=== PATIENT | female | born 1970 | race African-American/Black ===

== ENCOUNTER 2017-02-11 15:35 | Emergency (ER) | payer MEDICAID, OTHER ==
[2017-02-11 15:44] VITALS: BP 177/87
[2017-02-11] MEDS ORDERED: Sodium Chloride 0.9% 10 ML Syringe FLUSH PRN (16:19)
[2017-02-11] MEDS ORDERED: Haloperidol Lactate 5 MG/ML SDV IVPUSH ONE (16:19)
[2017-02-11] MEDS ORDERED: diphenhydrAMINE 50 MG/ML SDV IVPUSH ONE (16:19)
[2017-02-11] MEDS ORDERED: Sodium Chloride 0.9% 1,000 ML IV ONE (16:19)
[2017-02-11] MEDS ORDERED: Metoclopramide 10 MG/2 ML SDV IVPUSH ONE (16:20)
--- NOTE | 2017-02-11 16:24 | EDM.PDOC ---
ED HPI GENERAL MEDICAL PROBLEM - General Chief Complaint: Headache Stated Complaint: HEADACHE SINCE TUE Time Seen by Provider: 02/11/17 16:03 Source of Information: Reports: Patient, Old Records (recent ER, clinic labs and clinic visits) History Limitations: Reports: No Limitations - History of Present Illness INITIAL COMMENTS - FREE TEXT/NARRATIVE: 46-year-old female presents for evaluation and treatment of a headache. Patient reports that the headache developed on Tuesday. She was seen at the [facility] in [place]. She states she was given 2 Tylenol and a lisinopril. She was then instructed to go home and rest. She states that the headache did not resolve. Patient states that she saw her primary care provider. Labs were done. She states that she was given a shot Toradol which did not help her headache. She has a history of hypertension and has been off her blood pressure medications for some time. She has been instructed to go back on the lisinopril. She is currently complaining of a headache, blurry vision, photophobia and nausea. She denies any neck pain, seizures, double vision, chest pain, shortness of breath, numbness and tingling. Patient reports that the headache is located on the top of her head and rated as a 10 out of 10. She does not get frequent headaches. Patient has also had diarrhea. She states that anything she eats she'll have 2 episodes of diarrhea immediately afterwards. No vomiting. No abdominal pain. No melena or hematochezia. Patient denies any surgeries to her abdomen. Patient reports that she ate [employer] on Tuesday. She states she has not eaten [employer] in approximately 20 years. This was the only thing out of the normal that she can think of that may attribute triggered the migraine. She denies any recent travel. She denies any ill contacts. Headache Pain Score (Numeric/FACES): 10 - Related Data Allergies Allergy/AdvReac Type Severity Reaction Status Date / Time No Known Drug Allergies Allergy Other Verified 05/31/16 08:53 Home Meds: Home Meds Lisinopril 20 mg PO DAILY 05/28/16 [History] Past Medical History Cardiovascular History: Reports: Hypertension Social & Family History - Tobacco Use Smoking Status *Q: Never Smoker - Caffeine Use Caffeine Use: Reports: Soda, Tea - Recreational Drug Use Recreational Drug Use: No ED ROS GENERAL - Review of Systems Review Of Systems: See Below Constitutional: Denies: Fever HEENT: Reports: Vision Change (reports blurry vision; no double vision), Other ( reports photophobia) GI/Abdominal: Reports: Diarrhea, Nausea, Vomiting. Denies: Abdominal Pain, Hematochezia, Melena Musculoskeletal: Denies: Neck Pain, Back Pain - Physical Exam Exam: See Below Exam Limited By: No Limitations General Appearance: Alert, WD/WN, No Apparent Distress Eye Exam: Bilateral Eye: PERRL Ears: Normal External Exam, Normal Canal, Hearing Grossly Normal, Normal TMs Nose: Normal Inspection Throat/Mouth: Normal Inspection, Normal Lips, Normal Voice, No Airway Compromise Head Exam: Atraumatic, Normocephalic Neck: Normal Inspection, Supple, Non-Tender, Full Range of Motion Respiratory/Chest: No Respiratory Distress, Lungs Clear, Normal Breath Sounds Cardiovascular: Normal Peripheral Pulses, Regular Rate, Rhythm, No Murmur Neuro Exam (Abbreviated): Alert, Oriented, Normal Cognition, Normal Gait Psychiatric: Normal Affect, Normal Mood Skin Exam: Warm, Dry, Normal Color Course - Vital Signs Last Recorded V/S: Last Vital Signs Temp 36.9 C 02/11/17 15:43 Pulse 67 02/11/17 15:43 Resp 20 02/11/17 15:43 BP 177/87 H 02/11/17 15:43 Pulse Ox 99 02/11/17 15:43 - Orders/Labs/Meds Orders: Active Orders 24 hr Category Date Time Status Peripheral IV Care [RC] . DIRECTED Care 02/11/17 16:19 Active Sodium Chloride 0.9% [Saline Flush] Med 02/11/17 16:19 Active 10 ml FLUSH ASDIRECTED PRN Peripheral IV Insertion Adult [OM.PC] Routine Oth 02/11/17 16:15 Ordered Medication Orders Sodium Chloride (Saline Flush) 10 ml FLUSH ASDIRECTED PRN PRN Reason: Keep Vein Open Last Admin: 02/11/17 16:50 Dose: 10 ml Meds: Medications Generic Name Dose Route Start Last Admin Trade Name Freq PRN Reason Stop Dose Admin Sodium Chloride 10 ml 02/11/17 16:19 02/11/17 16:50 Saline Flush FLUSH 10 ml ASDIRECTED PRN Administration Keep Vein Open Discontinued Medications Generic Name Dose Route Start Last Admin Trade Name Freq PRN Reason Stop Dose Admin Diphenhydramine HCl 50 mg 02/11/17 16:19 02/11/17 16:55 Benadryl IVPUSH 02/11/17 16:20 50 mg ONETIME ONE Administration Haloperidol Lactate 5 mg 02/11/17 16:19 02/11/17 16:59 Haldol IVPUSH 02/11/17 16:20 5 mg ONETIME ONE Administration Sodium Chloride 1,000 mls @ 999 mls/hr 02/11/17 16:19 02/11/17 16:52 Normal Saline IV 02/11/17 17:19 999 mls/hr ONETIME ONE Administration Metoclopramide HCl 5 mg 02/11/17 16:20 02/11/17 16:53 Reglan IVPUSH 02/11/17 16:21 5 mg ONETIME ONE Administration - Radiology Interpretation Free Text/Narrative:: CT of the head without contrast impression per Dr. Cason: 1. No acute abnormality identified on noncontrast head CT study. CT Results Date: 02/11/17 - Re-Assessments/Exams Free Text/Narrative Re-Assessment/Exam: 02/11/17 17:54 Patient is currently resting comfortably. She reports that her headache is going away. I reviewed the CT with her. We will allow her to rest and if she feels better she may go home at any point. 02/11/17 18:00 The patient is now alert and awake. She states that her headache has resolved. She feels comfortable going home. I advised her to return to the ER if her symptoms change or worsen. She is to continue with her current plan of care and take the prescription provided by her primary care provider as planned. Discharge instructions as documented. Departure - Departure Time of Disposition: 18:00 Disposition: Home, Self-Care 01 Condition: Good Clinical Impression: Migraine - Discharge Information Referrals: Odilia Stern PA-C [Primary Care Provider] - Forms: ED Department Discharge Additional Instructions: I recommend taking your blood pressure medication daily as prescribed. Go home and rest in a dark quiet room. Follow-up with your primary care provider for further management of your migraine headaches as needed. May take your medication prescribed by your primary care provider if needed for additional headache relief. Make sure you are drinking plenty of fluids. Please return to the ER if your symptoms change or worsen. - My Orders Last 24 Hours: My Active Orders 02/11/17 16:15 Peripheral IV Insertion Adult [OM.PC] Routine 02/11/17 16:19 Peripheral IV Care [RC] . DIRECTED Sodium Chloride 0.9% [Saline Flush] 10 ml FLUSH ASDIRECTED PRN - Assessment/Plan Last 24 Hours: My Active Orders 02/11/17 16:15 Peripheral IV Insertion Adult [OM.PC] Routine 02/11/17 16:19 Peripheral IV Care [RC] . DIRECTED Sodium Chloride 0.9% [Saline Flush] 10 ml FLUSH ASDIRECTED PRN
--- NOTE | 2017-02-11 16:46 | CT ---
Head CT Technique: Multiple axial sections through the brain were obtained. Intravenous contrast was not utilized. Comparison: No previous intracranial imaging. Findings: Ventricles along with basal cisterns and sulci over the convexities appear within normal limits for the patient's age. Several incidental basal ganglia calcifications are seen. No abnormal parenchymal densities are seen. No evidence of intracranial hemorrhage. No midline shift or mass effect is seen. Bone window settings were reviewed which shows the visualized sinuses to appear clear. No calvarial abnormality is appreciated. Impression: 1. No acute abnormality identified on noncontrast head CT study. Diagnostic code #1
== END 2017-02-11 18:25 | disposition home or self-care (01) ==
LOC: JD.ED 15:35
DX: G43.909 Migraine, unspecified, not intractable, without status migrainosus (principal); I10 Essential (primary) hypertension
CPT/HCPCS: 70450; 96361; 96374; 96375; 99284; J1200; J1630; J2765; J7040; J7050; 99283